=== PATIENT | male | born 1960 | race African-American/Black ===

== ENCOUNTER 2017-01-18 14:38 | Inpatient (IN) ==
[2017-01-18 15:46] LABS: Basophils % 0.3 % (0.0-0.8); Eosinophils # 0.3 10*3/uL (0.0-0.87); Eosinophils % 1.6 % (0.00-10.9); Hematocrit 48.2 VOL% (42.0-52.0); Hemoglobin 16.7 GM/DL (14.0-18.0); Immature Granulocytes % 0.4 %; Immature Granulocytes Absolute 0.06 #; Lymphocytes # 3.1 10*3/uL (1.4-4.0); Lymphocytes % 20.1 % (21.2-54.2); Mean Corpuscular HGB Conc 34.6 GM/DL (32-36); Mean Corpuscular Hemoglobin 30 PG (27-34); Mean Corpuscular Volume 86.7 FL (87-102); Mean Platelet Volume 11.6 FL (9.6-12.0); Monocytes # 0.7 10*3/uL (0.11-0.8); Monocytes % 4.8 % (1.7-12.7); Neutrophils # 11.2 10*3/uL (1.4-7.4); Neutrophils % 72.8 % (38.7-73.9); Platelet Count 223 T/CUMM (130-400); Red Blood Count 5.56 MC/CUMM (3.8-5.5); Red Cell Distribution Width 15.6 % (9.3-17.3); White Blood Count 15.4 T/CUMM (4-12)
[2017-01-18 16:04] LABS: Albumin 2.4 G/DL (3.4-5.0); Bilirubin,Total 0.4 MG/DL (0.2-1.0); Total Protein 8.2 G/DL (6.4-8.3)
[2017-01-18] MEDS ORDERED: ALBUTEROL/IPRATROPIUM 3 ML NEB RESP TX STA (16:16)
[2017-01-18] MEDS ORDERED: methylPREDNISolone SOD SUC 125 MG/2 ML VIAL IV STA (16:16)
[2017-01-18] MEDS ORDERED: LEVOFLOXACIN INJ 750 MG in PREMIX 1 EACH IV STA (16:17)
[2017-01-18] MEDS ORDERED: LEVOFLOXACIN INJ 150 ML IV ONE (16:27)
[2017-01-18] MEDS ORDERED: methylPREDNISolone SOD SUC 125 MG/2 ML VIAL ONE (16:28)
[2017-01-18] MEDS: TERBUTALINE 1 MG/1 ML VIAL SUBCUT SCH ×2 (16:40→17:10)
[2017-01-18 19:00] LABS: Apearance,Urine Slightly Hazy (Clear); Bilirubin,Urine Negative (Negative); Blood, Urine Negative (Negative); Glucose,Urine (UA) Negative (Negative); Ketones,Urine 5 mg/dL (Negative); Mucus,Urine Occasional /LPF (Occasional); Nitrite,Urine Negative (Negative); Protein,Urine 100 MG/DL; RBC,Urine 3 /HPF (0-4); Squamous Epithelial Cell,Urine Occasional /HPF (0-10); Urine Color Amber (Yellow); Urine Specific Gravity 1.018 (1.001-1.035); WBC,Urine 1 /HPF (0-6)
[2017-01-18] MEDS ORDERED: ACETAMINOPHEN 325 MG TABLET PO PRN (19:13)
[2017-01-18] MEDS ORDERED: ONDANSETRON 4 MG/2 ML VIAL IV PRN (19:13)
[2017-01-18] MEDS ORDERED: guaiFENesin 200 MG/10 ML UDCUP PO PRN (19:13)
[2017-01-18] MEDS ORDERED: MORPHINE 2 MG/1 ML SYRINGE IV PRN (19:13)
[2017-01-18] MEDS ORDERED: SODIUM CHLORIDE 0.9% 500 ML IV ONE (19:13)
[2017-01-18] MEDS ORDERED: NICOTINE 21 MG/24 HR PATCH TRANSDERM PRN (19:13)
[2017-01-18] MEDS ORDERED: ALBUTEROL 2.5 MG/3 ML NEB RESP TX PRN (19:13)
[2017-01-18] MEDS: ALBUTEROL 2.5 MG/3 ML NEB RESP TX SCH (19:58)
[2017-01-18] MEDS: DOCUSATE SODIUM 100 MG CAPSULE PO SCH (20:19)
[2017-01-18] MEDS: ENOXAPARIN 40 MG/0.4 ML SYRINGE SUBCUT SCH (20:19)
[2017-01-18] MEDS: OLANZapine 5 MG TABLET PO SCH (20:19)
[2017-01-18] MEDS: SODIUM CHLORIDE 0.9% 1,000 ML IV SCH (20:20)
[2017-01-18 21:13] LABS: Barbiturates Screen,Urine Negative (Negative); Benzodiazepines Screen,Urine Negative (Negative); Cannabinoid Screen,Urine Positive (Negative); Opiate Screen,Urine Positive (Negative); Phencyclidine Screen,Urine Negative (Negative)
[2017-01-18 22:14] LABS: Apearance,Urine Slightly Hazy (Clear); Bilirubin,Urine Negative (Negative); Blood, Urine Small mg/dL (Negative); Glucose,Urine (UA) >=500 mg/dL (Negative); Ketones,Urine Negative (Negative); Mucus,Urine Occasional /LPF (Occasional); Nitrite,Urine Negative (Negative); Protein,Urine 100 MG/DL; RBC,Urine <1 /HPF (0-4); Squamous Epithelial Cell,Urine Occasional /HPF (0-10); Urine Color Yellow (Yellow); Urine Specific Gravity 1.012 (1.001-1.035)
[2017-01-18 22:18] LABS: Barbiturates Screen,Urine Negative (Negative); Benzodiazepines Screen,Urine Negative (Negative); Cannabinoid Screen,Urine Positive (Negative); Opiate Screen,Urine Positive (Negative); Phencyclidine Screen,Urine Negative (Negative)
[2017-01-19] MEDS: ALBUTEROL 2.5 MG/3 ML NEB RESP TX SCH ×4 (00:49→21:15)
[2017-01-19] MEDS: amLODIPine 10 MG TABLET PO SCH (10:03)
[2017-01-19] MEDS: DOCUSATE SODIUM 100 MG CAPSULE PO SCH ×2 (10:03→21:09)
[2017-01-19] MEDS: SERTRALINE 100 MG TABLET PO SCH (10:04)
[2017-01-19] MEDS: SODIUM CHLORIDE 0.9% 1,000 ML IV SCH (10:04)
[2017-01-19] MEDS: PANTOPRAZOLE 40 MG TABLET PO SCH (10:04)
[2017-01-19] MEDS: ASPIRIN EC 81 MG TABLET PO SCH (10:04)
[2017-01-19] MEDS: LEVOFLOXACIN INJ 750 MG in PREMIX 1 EACH IV SCH (18:01)
[2017-01-19] MEDS: OLANZapine 5 MG TABLET PO SCH (21:09)
[2017-01-19] MEDS: ENOXAPARIN 40 MG/0.4 ML SYRINGE SUBCUT SCH (21:09)
[2017-01-20] MEDS: ALBUTEROL 2.5 MG/3 ML NEB RESP TX SCH ×4 (01:01→19:50)
[2017-01-20] MEDS: amLODIPine 10 MG TABLET PO SCH (09:26)
[2017-01-20] MEDS: DOCUSATE SODIUM 100 MG CAPSULE PO SCH ×2 (09:26→21:52)
[2017-01-20] MEDS: PANTOPRAZOLE 40 MG TABLET PO SCH (09:27)
[2017-01-20] MEDS: ASPIRIN EC 81 MG TABLET PO SCH (09:27)
[2017-01-20] MEDS: SERTRALINE 100 MG TABLET PO SCH (09:27)
[2017-01-20] MEDS: SODIUM CHLORIDE 0.9% 1,000 ML IV SCH ×2 (17:43→20:05)
[2017-01-20] MEDS: LEVOFLOXACIN INJ 750 MG in PREMIX 1 EACH IV SCH (17:44)
[2017-01-20] MEDS: OLANZapine 5 MG TABLET PO SCH (21:52)
[2017-01-20] MEDS: ENOXAPARIN 40 MG/0.4 ML SYRINGE SUBCUT SCH (21:52)
[2017-01-21] MEDS: ALBUTEROL 2.5 MG/3 ML NEB RESP TX SCH ×3 (01:06→13:31)
[2017-01-21 05:52] LABS: Basophils # 0.1 10*3/uL (0.0-0.2); Basophils % 0.4 % (0.0-0.8); Eosinophils # 0.8 10*3/uL (0.0-0.87); Hemoglobin 15.8 GM/DL (14.0-18.0); Immature Granulocytes % 0.4 %; Immature Granulocytes Absolute 0.06 #; Lymphocytes # 5.4 10*3/uL (1.4-4.0); Lymphocytes % 36.4 % (21.2-54.2); Mean Corpuscular HGB Conc 34.3 GM/DL (32-36); Mean Corpuscular Hemoglobin 30 PG (27-34); Mean Platelet Volume 11.7 FL (9.6-12.0); Monocytes # 1.5 10*3/uL (0.11-0.8); Monocytes % 9.9 % (1.7-12.7); NRBC # 0.02 10*3/uL; Neutrophils # 7.1 10*3/uL (1.4-7.4); Neutrophils % 47.9 % (38.7-73.9); Platelet Count 295 T/CUMM (130-400); Red Blood Count 5.23 MC/CUMM (3.8-5.5); Red Cell Distribution Width 16.2 % (9.3-17.3); White Blood Count 14.9 T/CUMM (4-12)
[2017-01-21] MEDS: amLODIPine 10 MG TABLET PO SCH (08:54)
[2017-01-21] MEDS: DOCUSATE SODIUM 100 MG CAPSULE PO SCH (08:54)
[2017-01-21] MEDS: ASPIRIN EC 81 MG TABLET PO SCH (08:54)
[2017-01-21] MEDS: SERTRALINE 100 MG TABLET PO SCH (08:54)
[2017-01-21] MEDS: SODIUM CHLORIDE 0.9% 1,000 ML IV SCH ×2 (08:54→14:25)
[2017-01-21] MEDS: PANTOPRAZOLE 40 MG TABLET PO SCH (08:54)
[2017-01-21 12:23] VITALS: BP 115/76
== END 2017-01-21 14:39 | disposition home or self-care (01) | DRG 139 ==
LOC: EDBD → EDUNIT# → N.ED 14:38 → N.EDINP 17:01 → SUATTDRO 17:01 → N.5E 18:44
PROVIDERS: ADMIT Internal Medicine Geriatric Medicine; ATTEND Internal Medicine

== ENCOUNTER 2017-08-12 14:56 | Observation (INO) ==
[2017-08-12] MEDS ORDERED: ASPIRIN 325 MG TABLET PO STA (16:32)
[2017-08-12] MEDS ORDERED: ONDANSETRON 4 MG/2 ML VIAL IV STA (16:32)
[2017-08-12] MEDS ORDERED: SODIUM CHLORIDE 0.9% 500 ML IV STA (16:32)
[2017-08-12] MEDS ORDERED: methylPREDNISolone SOD SUC 125 MG/2 ML VIAL IV STA (17:00)
[2017-08-12] MEDS ORDERED: ALBUTEROL/IPRATROPIUM 3 ML NEB RESP TX STA (17:00)
[2017-08-12 17:38] LABS: Basophils % 0.4 % (0.0-0.8); Eosinophils # 0.4 10*3/uL (0.0-0.87); Eosinophils % 4.1 % (0.00-10.9); Hematocrit 46.4 VOL% (42.0-52.0); Hemoglobin 15.8 GM/DL (14.0-18.0); Immature Granulocytes % 0.3 %; Immature Granulocytes Absolute 0.03 #; Lymphocytes # 4.5 10*3/uL (1.4-4.0); Mean Corpuscular HGB Conc 34.1 GM/DL (32-36); Mean Corpuscular Hemoglobin 31 PG (27-34); Mean Corpuscular Volume 91.5 FL (87-102); Mean Platelet Volume 11.6 FL (9.6-12.0); Monocytes # 0.7 10*3/uL (0.11-0.8); Monocytes % 6.9 % (1.7-12.7); Neutrophils % 46.3 % (38.7-73.9); Platelet Count 201 T/CUMM (130-400); Red Blood Count 5.07 MC/CUMM (3.8-5.5); Red Cell Distribution Width 15.4 % (9.3-17.3); White Blood Count 10.7 T/CUMM (4-12)
[2017-08-12 17:43] LABS: Apearance,Urine CLEAR (Clear); Bilirubin,Urine Negative (Negative); Blood, Urine Negative (Negative); Glucose,Urine (UA) Negative (Negative); Ketones,Urine Negative (Negative); Nitrite,Urine Negative (Negative); Protein,Urine 100 MG/DL; RBC,Urine <1 /HPF (0-4); Urine Color Straw (Yellow); Urine Specific Gravity 1.004 (1.001-1.035); Urine Urobilinogen < 2.0 EU/DL (0.2-1.0); WBC,Urine 2 /HPF (0-6)
[2017-08-12 18:01] LABS: PT Patient Result 10.6 SECS; Partial Thromboplastin Time 29.9 SECS (0-40)
[2017-08-12 18:22] LABS: Barbiturates Screen,Urine Negative (Negative); Benzodiazepines Screen,Urine Negative (Negative); Cannabinoid Screen,Urine Positive (Negative); Opiate Screen,Urine Negative (Negative); Phencyclidine Screen,Urine Negative (Negative)
[2017-08-12 18:33] LABS: Alanine Aminotransferase 58 U/L (16-61); Albumin 2.6 G/DL (3.4-5.0); Alkaline Phosphatase 138 U/L (45-117); Aspartate Amino Transferase 53 U/L (0-37); Blood Urea Nitrogen 7 MG/DL (7-18); Calcium 8.6 MG/DL (8.5-10.1); Glucose 75 MG/DL (74-106); Osmolality,Calculated 273.5 MOS/KG (273-304); Potassium 3.6 MMOL/L (3.5-5.1); Sodium 139 MMOL/L (136-145); Total Protein 7.5 G/DL (6.4-8.3); Troponin I Only < 0.015 NG/ML (0.00-0.045)
[2017-08-12] MEDS ORDERED: NICOTINE 21 MG/24 HR PATCH TRANSDERM PRN (19:32)
[2017-08-12] MEDS ORDERED: ONDANSETRON 4 MG/2 ML VIAL IV PRN (19:32)
[2017-08-12] MEDS ORDERED: hydrALAZINE 20 MG/1 ML VIAL IV PRN (19:38)
[2017-08-12] MEDS ORDERED: LORazepam 2 MG/1 ML VIAL IV PRN (19:44)
[2017-08-12 20:04] LABS: Risk Ratio 2.83; Thyroid Stimulating Hormone 1.85 uIU/ml (0.358-3.74); VLDL CHOLESTEROL 14.4 MG/DL
[2017-08-12] MEDS ORDERED: HALOPERIDOL 5 MG/ML AMP IV PRN (22:37)
[2017-08-12] MEDS: SODIUM CHLORIDE 0.45% 1,000 ML IV SCH (23:41)
[2017-08-12] MEDS: ENOXAPARIN 40 MG/0.4 ML SYRINGE SUBCUT SCH (23:41)
[2017-08-13 04:49] LABS: Hematocrit 45.4 VOL% (42.0-52.0); Hemoglobin 16.1 GM/DL (14.0-18.0); Immature Granulocytes % 0.3 %; Immature Granulocytes Absolute 0.02 #; Lymphocytes # 1.4 10*3/uL (1.4-4.0); Lymphocytes % 19.5 % (21.2-54.2); Mean Corpuscular HGB Conc 35.5 GM/DL (32-36); Mean Corpuscular Hemoglobin 32 PG (27-34); Mean Corpuscular Volume 88.8 FL (87-102); Mean Platelet Volume 11.8 FL (9.6-12.0); Monocytes # 0.1 10*3/uL (0.11-0.8); Monocytes % 1.1 % (1.7-12.7); Neutrophils # 5.7 10*3/uL (1.4-7.4); Neutrophils % 79.1 % (38.7-73.9); Platelet Count 229 T/CUMM (130-400); Red Blood Count 5.11 MC/CUMM (3.8-5.5); White Blood Count 7.1 T/CUMM (4-12)
[2017-08-13 05:17] LABS: Albumin 2.4 G/DL (3.4-5.0); Bilirubin,Total 0.4 MG/DL (0.2-1.0); Calcium 8.7 MG/DL (8.5-10.1); Osmolality,Calculated 283.7 MOS/KG (273-304); Total Protein 7.5 G/DL (6.4-8.3)
[2017-08-13 05:22] LABS: Troponin I Only < 0.015 NG/ML (0.00-0.045)
[2017-08-13] MEDS: PANTOPRAZOLE 40 MG TABLET PO SCH (09:13)
[2017-08-13] MEDS: ASPIRIN 325 MG TABLET PO SCH (09:13)
[2017-08-13] MEDS ORDERED: ASPIRIN EC 81 MG TABLET PO SCH (12:00)
[2017-08-13] MEDS: ATORVASTATIN 40 MG TABLET PO SCH (12:46)
[2017-08-13] MEDS: SODIUM CHLORIDE 0.45% 1,000 ML IV SCH ×2 (12:47→21:41)
[2017-08-13] MEDS: amLODIPine 10 MG TABLET PO SCH (12:47)
[2017-08-13] MEDS: ENOXAPARIN 40 MG/0.4 ML SYRINGE SUBCUT SCH (20:41)
[2017-08-14 08:50] VITALS: BP 140/88
[2017-08-14] MEDS: ASPIRIN 325 MG TABLET PO SCH (08:56)
[2017-08-14] MEDS: PANTOPRAZOLE 40 MG TABLET PO SCH (08:56)
[2017-08-14] MEDS: ATORVASTATIN 40 MG TABLET PO SCH (08:56)
[2017-08-14] MEDS: amLODIPine 10 MG TABLET PO SCH (08:56)
== END 2017-08-14 12:30 | disposition home or self-care (01) ==
LOC: EDBD → EDUNIT# → N.ED 14:56 → SUATTDRO 19:31 → N.EDINP 19:31 → INTOOBSV 19:31 → N.EDINP 22:04 → N.TELEN 22:36 → UNDODISOB 08-14 12:30 → N.SDSINP 08-14 14:40 → N.TELEN 08-14 14:40
PROVIDERS: ADMIT Internal Medicine; ATTEND Internal Medicine Cardiovascular Disease

== ENCOUNTER 2017-12-18 09:40 | Observation (INO) ==
[2017-12-18] MEDS ORDERED: SODIUM CHLORIDE 0.9% 1,000 ML IV STA (10:00)
[2017-12-18] MEDS ORDERED: ONDANSETRON 4 MG/2 ML VIAL IV PRN (10:00)
[2017-12-18 10:05] LABS: Basophils % 0.3 % (0.0-0.8); Eosinophils # 0.4 10*3/uL (0.0-0.87); Eosinophils % 4.7 % (0.00-10.9); Hemoglobin 14.4 GM/DL (14.0-18.0); Immature Granulocytes % 0.3 %; Immature Granulocytes Absolute 0.02 #; Lymphocytes # 3.2 10*3/uL (1.4-4.0); Lymphocytes % 41.1 % (21.2-54.2); Mean Corpuscular HGB Conc 33.5 GM/DL (32-36); Mean Corpuscular Hemoglobin 32 PG (27-34); Mean Corpuscular Volume 94.5 FL (87-102); Mean Platelet Volume 11.4 FL (9.6-12.0); Monocytes # 0.6 10*3/uL (0.11-0.8); Monocytes % 7.1 % (1.7-12.7); Neutrophils # 3.7 10*3/uL (1.4-7.4); Neutrophils % 46.5 % (38.7-73.9); Platelet Count 226 T/CUMM (130-400); Red Blood Count 4.55 MC/CUMM (3.8-5.5); White Blood Count 7.9 T/CUMM (4-12)
[2017-12-18 10:18] LABS: Alanine Aminotransferase 49 U/L (16-61); Albumin 2.7 G/DL (3.4-5.0); Alkaline Phosphatase 125 U/L (45-117); Aspartate Amino Transferase 59 U/L (0-37); Bilirubin,Total < 0.39 MG/DL (0.2-1.0); Blood Urea Nitrogen 8 MG/DL (7-18); Calcium 8.9 MG/DL (8.5-10.1); Glucose 115 MG/DL (74-106); Osmolality,Calculated 273.7 MOS/KG (273-304); Potassium 3.7 MMOL/L (3.5-5.1); Sodium 138 MMOL/L (136-145); Total Protein 7.4 G/DL (6.4-8.3)
[2017-12-18 10:50] LABS: Apearance,Urine CLEAR (Clear); Bilirubin,Urine Negative (Negative); Blood, Urine Small mg/dL (Negative); Glucose,Urine (UA) Negative (Negative); Ketones,Urine Negative (Negative); Mucus,Urine Occasional /LPF (Occasional); Nitrite,Urine Negative (Negative); Protein,Urine 100 MG/DL; RBC,Urine 1 /HPF (0-4); Urine Color Yellow (Yellow); Urine Specific Gravity 1.005 (1.001-1.035); Urine Urobilinogen < 2.0 EU/DL (0.2-1.0); WBC,Urine <1 /HPF (0-6)
[2017-12-18 10:52] LABS: Barbiturates Screen,Urine Negative (Negative); Benzodiazepines Screen,Urine Negative (Negative); Cannabinoid Screen,Urine Negative (Negative); Opiate Screen,Urine Negative (Negative); Phencyclidine Screen,Urine Negative (Negative)
[2017-12-18] MEDS ORDERED: ACETAMINOPHEN 325 MG TABLET PO PRN (12:07)
[2017-12-18] MEDS ORDERED: LABETALOL 20 MG/4 ML SYRINGE IV PRN (12:10)
[2017-12-18] MEDS ORDERED: LOPERAMIDE 2 MG CAPSULE PO PRN (13:57)
[2017-12-18] MEDS ORDERED: ONDANSETRON ODT 4 MG TABLET PO PRN (13:57)
[2017-12-18 14:07] LABS: Risk Ratio 3.35; VLDL CHOLESTEROL 20.4 MG/DL
[2017-12-18] MEDS ORDERED: DEXTROSE 50% 25 GM/50 ML VIAL IV PRN (14:12)
[2017-12-18] MEDS ORDERED: GLUCAGON 1 MG VIAL IM PRN (14:12)
[2017-12-18] MEDS ORDERED: chlordiazePOXIDE 10 MG CAPSULE PO PRN (14:20)
[2017-12-18] MEDS: NICOTINE 14 MG/24 HR PATCH TRANSDERM SCH (15:12)
[2017-12-18] MEDS: SODIUM CHLORIDE 0.9% 1,000 ML IV SCH (15:13)
[2017-12-18] MEDS: INSULIN REGULAR 100 UNIT/ML SUBCUT SCH ×2 (16:03→20:48)
[2017-12-18] MEDS ORDERED: traZODone 50 MG TABLET PO SCH (21:00)
[2017-12-19] MEDS: SODIUM CHLORIDE 0.9% 1,000 ML IV SCH ×2 (01:05→11:03)
[2017-12-19 05:11] LABS: Basophils % 0.4 % (0.0-0.8); Eosinophils # 0.7 10*3/uL (0.0-0.87); Eosinophils % 6.8 % (0.00-10.9); Hematocrit 39.4 VOL% (42.0-52.0); Hemoglobin 12.9 GM/DL (14.0-18.0); Immature Granulocytes % 0.2 %; Immature Granulocytes Absolute 0.02 #; Lymphocytes # 5.1 10*3/uL (1.4-4.0); Lymphocytes % 51.7 % (21.2-54.2); Mean Corpuscular HGB Conc 32.7 GM/DL (32-36); Mean Corpuscular Hemoglobin 31 PG (27-34); Mean Platelet Volume 12.9 FL (9.6-12.0); Monocytes # 0.6 10*3/uL (0.11-0.8); Monocytes % 6.6 % (1.7-12.7); Neutrophils # 3.4 10*3/uL (1.4-7.4); Neutrophils % 34.3 % (38.7-73.9); Platelet Count 225 T/CUMM (130-400); Red Blood Count 4.19 MC/CUMM (3.8-5.5); Red Cell Distribution Width 15.2 % (9.3-17.3); White Blood Count 9.8 T/CUMM (4-12)
[2017-12-19 05:31] LABS: Calcium 8.2 MG/DL (8.5-10.1); Potassium 3.3 MMOL/L (3.5-5.1)
[2017-12-19 06:33] LABS: Eosinophils 8 % (0-10); Hypochromasia 1+; Lymphocytes 51 % (20-55); Platelet Estimate Adequate; Segmented Neutrophils 34 % (50-85); Total Cells Counted 100
[2017-12-19] MEDS: INSULIN REGULAR 100 UNIT/ML SUBCUT SCH ×2 (08:16→11:08)
[2017-12-19] MEDS ORDERED: ATORVASTATIN 40 MG TABLET PO SCH (09:00)
[2017-12-19] MEDS ORDERED: SERTRALINE 50 MG TABLET PO SCH (09:00)
[2017-12-19] MEDS ORDERED: PANTOPRAZOLE 40 MG TABLET PO SCH (09:00)
[2017-12-19] MEDS ORDERED: ASPIRIN EC 81 MG TABLET PO SCH (09:00)
[2017-12-19] MEDS ORDERED: THIAMINE 100 MG TABLET PO SCH (09:00)
[2017-12-19] MEDS ORDERED: MULTIVITAMIN (CENTRUM) TABLET PO SCH (09:00)
[2017-12-19] MEDS ORDERED: FOLIC ACID 1 MG TABLET PO SCH (09:00)
[2017-12-19] MEDS ORDERED: amLODIPine 5 MG TABLET PO SCH (09:00)
[2017-12-19] MEDS: NICOTINE 14 MG/24 HR PATCH TRANSDERM SCH (09:25)
[2017-12-19] MEDS ORDERED: POTASSIUM CHLORIDE 20 MEQ TABLET PO ONE (10:19)
[2017-12-19 12:46] VITALS: BP 120/96
== END 2017-12-19 12:40 | disposition home or self-care (01) ==
LOC: EDUNIT# → EDBD → N.ED 09:40 → N.EDINP 09:40 → N.5E 14:49
PROVIDERS: ADMIT Hospitalist; ATTEND Hospitalist